=== PATIENT | male | born 1990 | race Caucasian/White ===

== ENCOUNTER 2024-11-05 02:35 | Emergency (ER) | payer OTHER, SELFPAY ==
[2024-11-05 02:38] VITALS: BP 136/99; PULSE 89; RESP 16; TEMP 36.6; O2SAT 100
--- NOTE | 2024-11-05 03:11 | NUR.NOTE ---
Pt Eloped 11/04/24 1170, GERI
--- NOTE | 2024-11-05 03:11 | W.ED.GENAD ---
Discharge Plan Disposition Patient Disposition: Eloped Discharge Details Clinical Impression: Acute shoulder pain Primary Care Provider: None,None ED Provider: Margarette Swenson Home Meds and New Rx's Prescriptions: No Action Centrum Complete 1 EACH tablet 1 ea PO TWICE WEEKLY HPI General Mode of arrival: ambulatory. Date/Time Provider Initiated Documentation: 11/05/24 02:45. Limitations to Documentation: no limitations. Information obtained by: patient. HPI Narrative: 34yo previously health male presenting with left shoulder pain onset on 10/31. Was at working, heavy lifting, about mid-day began to notice some burning left shoulder pain that was coming and going. Cannot pinpoint any specific event or time of onset, seemed to develop gradually throughout the day. Woke the next morning with pain significantly worse. Has been intermittent since then; seems to be worst when laying down and is preventing him from sleep. Pain is burning, radiates from his left shoulder up to his left neck as well as down his left arm. Some associated 'pins and needles' feeling like his arm has fallen asleep. Last took advil at 10am yesterday; no pain medication since then. No chest pain, back pain, or shortness of breath. No pain elsewhere. No recent trauma. Otherwise in his usual state of health. Related Data Home Medications ?Medication ?Instructions ?Recorded ?Confirmed multivitamin-ferrous 1 ea PO TWICE WEEKLY 05/06/14 11/05/24 fumarate-folic acid 18 mg-400 mcg tablet (Centrum Complete) Allergies Allergy/AdvReac Type Severity Reaction Status Date / Time No Known Allergies Allergy Unverified 11/05/24 02:44 General Stated Complaint: Orthopedic NITA: 4 Review of Systems Narrative: see HPI Exam Narrative Exam Narrative: General: Alert, well appearing, well nourished, in no acute distress. Head: Normocephalic, atraumatic Neck: Trachea midline, ?Neck supple. Full pain free ROM at neck. No midline cervical tenderness. Cardiac: ?RRR, no murmurs appreciated. Equal radial pulses bilaterally. Resp: No respiratory distress. CTAB. Abd: ?Nondistended Extremities: ?No deformities.? No peripheral edema. RUE: No bony tenderness to clavicle, scapula, acromion, humeral head. No palpable muscle spasm, mild muscular tenderness throughout shoulder. Full active ROM with forward flexion, abduction, adduction, external rotation, extension, internal rotation; painful with external rotation. Sensation intact to light touch throughout RUE and symmetric with LUE. Neuro: ? GCS 15.? PERRL.? EOMI.? Fluent speech, no dysarthria. Motor- RUE shoulder strength testing deferred w/t pain, otherwise 5/5 strength symmetric bilateral upper and lower extremities including elbow flexors/extensors, wrist flexors/extensors, finger abductors/adductors, hipflexors/extensors, knee flexors/extensors, ankle dorsiflexors and planter flexors. Sensation- ?Intact to light touch and symmetric multiple dermatomes including upper and lower extremities CRANIAL NERVES: II: Pupils equal and reactive, III, IV, : EOM intact, no gaze preference or deviation, no nystagmus. V: normal sensation in V1, V2, and V3 segments bilaterally VII: no asymmetry, no nasolabial fold flattening VIII: normal hearing to speech IX, X: normal palatal elevation, no uvular deviation XI: 5/5 head turn and 5/5 shoulder shrug bilaterally XII: midline tongue protrusion Course Vital Signs Vital signs: Vital Signs Temperature 36.6 C 11/05/24 02:38 Pulse 89 11/05/24 02:38 Respiratory Rate 16 11/05/24 02:38 Blood Pressure 136/99 H 11/05/24 02:38 Pulse Oximetry 100 11/05/24 02:38 Temperature 36.6 C 11/05/24 02:38 Temperature Source Tympanic 11/05/24 02:38 Pulse 89 11/05/24 02:38 Respiratory Rate 16 11/05/24 02:38 Blood Pressure 136/99 H 11/05/24 02:38 Blood Pressure Position Sitting 11/05/24 02:38 Pulse Oximetry 100 11/05/24 02:38 Oxygen Delivery Method Room Air 11/05/24 02:38 Oxygen Flow Rate 0 11/05/24 02:38 Pain Level 8 11/05/24 02:48 Medical Decision Making 34yo previously health male presenting with left shoulder pain onset on 10/31 onset while lifting heavy objects at work. Pain is intermittent, burning, and radiates to his neck and arm. Associated paresthesias, positional, worst with laying down. Vital signs reassuring on arrival, normal neurologic exam (sans shoulder strength testing and reflexes) and full active ROM. Deferred full strength testing until after pain medication (tylenol/toradol); will locate reflex hammer and check reflexes at that time as well. With neuropathic pain concern for cervical radiculopathy; will get CT c-spine to start as well as plain films left shoulder to evaluate for bony pathology. Unlikely CVA given positional and reproducible symptoms. Unlikely ACS/PE/aortic dissection; out of abundance of caution will get EKG, labs, dimer while awaiting results of imaging. Plan discussed with patient. While ordering workup as above (roughly 5 minutes after evaluating patient), I was notified that patient had eloped from the department. PFS All Active Problems (Updated 11/05/24 @ 03:44 by Margarette Swenson MD) Acute shoulder pain (Acute) Family History Mother No problems noted. Father No problems noted. Brother No problems noted. Grandfather No problems noted. Grandfather No problems noted. Grandmother No problems noted. Grandmother No problems noted. Social History Smoking/Tobacco Use Status: Current every day Tobacco Type: e-cigarettes Smoking risk assessment performed?: Yes Alcohol Intake: current Alcohol Intake frequency: a few times a month Drug use: Never Substance use type: does not use
== END 2024-11-05 03:44 | disposition left against medical advice (07) ==
PROVIDERS: Emergency Provider Student in an Organized Health Care Education/Training Program
DX: Z53.20 Procedure and treatment not carried out because of patient's decision for unspecified reasons (principal); M25.512 Pain in left shoulder; Y99.0 Civilian activity done for income or pay
CPT/HCPCS: 99282; 99281

== ENCOUNTER 2024-11-05 07:45 | Emergency (ER) | payer OTHER, SELFPAY ==
--- NOTE | 2024-11-05 07:45 | RT.EKG_ITS ---
APPROVED REPORT Exam: Resting ECG Reason for Exam: L arm pain Patient Location: E HR:76 bpm ECG Measurements Heart Rate 76 AXIS NC 116 P 21 QRSd 144 QRS 57 QT 423 T 45 QTc 475 Conclusion Sinus rhythm...normal P axis, V-rate 60- 99 Right bundle branch block...QRSd>120, terminal axis(90,270)
[2024-11-05 07:48] VITALS: BP 137/92; PULSE 55; RESP 16; TEMP 36.4; O2SAT 100
--- NOTE | 2024-11-05 08:00 | DI.RAD_ITS ---
Exam(s) XR SHOULDER LT COMPLETE 2+V EXAM: XR SHOULDER LT COMPLETE 2+V CLINICAL HISTORY: pain s/p heavy lifting object. TECHNIQUE: 2D digital imaging was performed. COMPARISON: No exams were available for comparison FINDINGS: Five views No evidence of fracture or dislocation nor abnormal soft tissue calcifications. Subacromial space is not diminished. There are no degenerative changes in the glenohumeral and AC joints. Ipsilateral clavicle appears unremarkable. Bone density is normal. There are no osseous lesions. The coracoid process is intact. IMPRESSION: No acute osseous findings in the shoulder. DATA REPOSITORY: RADIATION DOSE DELIVERED:
--- NOTE | 2024-11-05 08:14 | ED.GENADUL_ITS ---
Discharge Plan Disposition Patient Disposition: Home Condition: Stable Discharge Details Clinical Impression: Acute shoulder pain Primary Care Provider: None,None ED Provider: Jayson Montiel Home Meds and New Rx's Prescriptions: Discontinued Centrum Complete 1 EACH tablet 1 ea PO TWICE WEEKLY Discharge Instructions Additional Instructions: Your x-ray did not show any concerning findings at this time. You can take 1000 mg of acetaminophen and 600 mg of ibuprofen every 6 hours as needed. Use the sling as needed for comfort. If not improving within a week follow-up with either express care or a primary care provider. If you feel significantly more ill or have new symptoms such as high fevers return to the emergency department for reevaluation. HPI General Mode of arrival: ambulatory . Date/Time Provider Initiated Documentation: 11/05/24 07:46 . Limitations to Documentation: no limitations . Information obtained by: patient . History of Present Illness 34 year old M presents to the emergency department with the chief complaint of left shoulder pain, described as moderate, Quality is described as aching, and is localized to the left and upper extremity. Patient reports no radiation. Patient started experiencing this week(s) (1) and it has been constant. Rest improves symptom(s), Movement worsens symptoms . Patient notes no other symptoms.. Patient did receive the following treatments prior to arrival, none Related Data Allergies Allergy/AdvReac Type Severity Reaction Status Date / Time No Known Allergies Allergy Unverified 11/05/24 07:56 General Stated Complaint: Orthopedic NITA: 3 Review of Systems All systems reviewed & are unremarkable except as noted in HPI and below Constitutional Constitutional: Denies chills, Denies fever(s) and Denies weakness Cardiovascular Cardiovascular: Denies chest pain and Denies dyspnea Respiratory Respiratory: Denies cough and Denies dyspnea Gastrointestinal Gastrointestinal: Denies abdominal pain, Denies nausea and Denies vomiting Musculoskeletal Musculoskeletal: Reports arthralgias Neurologic Neurologic: Denies weakness Exam Const General: no acute distress Orientation: alert HENMT Head: normal to inspection Ears: external ears normal General nose exam: external nose normal Mouth: moist mucous membranes Eyes General: appearance normal, both eyes and all related structures Neck Neck: normal visual inspection Resp Effort & Inspection: normal respiratory effort and able to speak in complete sentences Cardio Rate: regular rate Skin General skin exam: no rashes or lesions noted Neuro General: patient alert and patient oriented x3 Extrem General: normal to inspection, no cyanosis and no edema Left upper extremity: normal to inspection, full ROM and normal capillary refill; no cyanosis and no edema Psych Mental Status: mental status grossly normal Course Vital Signs Vital signs: Vital Signs Temperature 36.4 C L 11/05/24 07:48 Pulse 55 L 11/05/24 07:48 Respiratory Rate 16 11/05/24 07:48 Blood Pressure 137/92 H 11/05/24 07:48 Pulse Oximetry 100 11/05/24 07:48 Temperature 36.4 C L 11/05/24 07:48 Temperature Source Oral 11/05/24 07:48 Pulse 55 L 11/05/24 07:48 Respiratory Rate 16 11/05/24 07:48 Blood Pressure 137/92 H 11/05/24 07:48 Blood Pressure Position Sitting 11/05/24 07:48 Pulse Oximetry 100 11/05/24 07:48 Oxygen Delivery Method Room Air 11/05/24 07:48 Oxygen Flow Rate 0 11/05/24 07:48 Pain Level 9 11/05/24 07:48 Medical Decision Making 34-year-old male who denies any chronic medical problems comes in with 1 week of left shoulder pain after he states he was lifting heavy objects at work. He denies any falls or trauma. He denies any fevers or chills. He states that he will have radiating pain down the left arm as well. He denies any chest pain, difficulty breathing, abdominal pain, vomiting. He is well-appearing on exam, he has full range of motion of the left shoulder with reproducible anterior shoulder tenderness. There is no swelling of the arm. He has intact 2+ radial and ulnar pulses. There is no discoloration of the arm. I suspect a strain versus overuse injury versus tendinitis. Will obtain x-rays to evaluate for possible underlying entities such as pathological fractures. He has no findings on exam or history to suggest entities such as septic joint. patient feels better after Toradol, still has good range of motion with no concerning findings on exam. X-ray unremarkable. Suspect overuse injury versus strain. He will follow-up with either PCP or express care if not improving and return precautions given Differential Diagnosis Differential Diagnosis: rotator cuff injury, strain, sprain Medical Records Medical records reviewed: Yes I reviewed the patient's medical records. ECG Data Attestation: I personally reviewed and interpreted this ECG (s) as follows: Prior ECG tracings: available for review Interpretation: sinus rate of 67 no stemi no significant changes from prior ekg PFS All Active Problems (Updated 11/05/24 @ 08:57 by Jayson Montiel MD) Acute shoulder pain (Acute) Family History Mother No problems noted. Father No problems noted. Brother No problems noted. Grandfather No problems noted. Grandfather No problems noted. Grandmother No problems noted. Grandmother No problems noted. Social History Smoking/Tobacco Use Status: Former Tobacco Use Smoking risk assessment performed?: Yes Alcohol Intake: current Alcohol Intake frequency: a few times a month Drug use: Never Substance use type: does not use Housing: house Do you feel safe at home: Yes Do you feel safe in your relationship?: Yes
[2024-11-05] MEDS: Ketorolac 15 MG/ML VIAL IM (08:22)
== END 2024-11-05 09:47 | disposition home or self-care (01) ==
PROVIDERS: Emergency Provider Emergency Medicine
DX: M25.512 Pain in left shoulder (principal); Y99.0 Civilian activity done for income or pay; X50.0XXA Overexertion from strenuous movement or load, initial encounter
CPT/HCPCS: 99283; 99284; 96372; 93005; 73030; 93010; J1885